=== PATIENT | female | born 1990 | race Caucasian/White ===

== ENCOUNTER 2021-06-06 14:08 | Emergency (ER) | payer OTHER ==
[2021-06-06 14:21] VITALS: BP 123/76; PULSE 105; TEMP 98.8; BMI 26.6
[2021-06-08 19:06] LABS: SARS-CoV-2 NAA Detected (Not Detected)
== END 2021-06-06 16:20 | disposition home or self-care (01) ==
LOC: JER 14:08
DX: U07.1 COVID-19 (principal); R05.1 Acute cough; R09.81 Nasal congestion
CPT/HCPCS: 99283-25; C9803; U0003; U0005

== ENCOUNTER 2021-06-14 13:00 | Emergency (ER) | payer OTHER ==
[2021-06-14 13:59] VITALS: BP 112/76; PULSE 78; TEMP 98.7; BMI 26.6
[2021-06-14] MEDS ORDERED: KETOROLAC TROMETHAMINE 60 MG/2 ML VIAL IM ONE (14:47)
[2021-06-14] MEDS ORDERED: CLINDAMYCIN HCL 150 MG CAPSULE (FP) PO ONE (14:48)
[2021-06-14] MEDS ORDERED: CLINDAMYCIN HCL 150 MG CAPSULE (FP) ONE (14:52)
[2021-06-14] MEDS ORDERED: KETOROLAC TROMETHAMINE 60 MG/2 ML VIAL ONE (14:52)
== END 2021-06-14 15:07 | disposition home or self-care (01) ==
LOC: JERFT 13:00 → JER 13:00 → JERFT 15:07
PROC: 3E0233Z Introduction of Anti-inflammatory into Muscle, Percutaneous Approach (ICD-10-PCS; principal; 2021-06-14)
DX: K08.89 Other specified disorders of teeth and supporting structures (principal)
CPT/HCPCS: 99284-25

== ENCOUNTER 2022-04-27 14:16 | Emergency (ER) | payer OTHER ==
[2022-04-27 14:48] VITALS: BP 132/80; PULSE 70; RESP 18; TEMP 98.1; BMI 29.2
== END 2022-04-27 19:00 | disposition left against medical advice (07) ==
LOC: JER 14:16
DX: M79.10 Myalgia, unspecified site (principal)
CPT/HCPCS: 93005; 93010; 99281-25

== ENCOUNTER 2022-04-28 15:09 | Emergency (ER) | payer OTHER ==
[2022-04-28 15:44] VITALS: BP 121/82; PULSE 74; RESP 20; TEMP 98.1; BMI 27.8
[2022-04-28] MEDS ORDERED: IBUPROFEN 400 MG TABLET (FP) PO ONE (16:57)
[2022-04-28] MEDS ORDERED: KETOROLAC TROMETHAMINE 30 MG/1 ML VIAL IM ONE (18:08)
[2022-04-28] MEDS ORDERED: KETOROLAC TROMETHAMINE 30 MG/1 ML VIAL ONE (18:10)
== END 2022-04-28 19:42 | disposition home or self-care (01) ==
LOC: JERFT 15:09
PROC: 3E0233Z Introduction of Anti-inflammatory into Muscle, Percutaneous Approach (ICD-10-PCS; principal; 2022-04-28)
DX: R07.89 Other chest pain (principal)
CPT/HCPCS: 71046-TC-FY; 99284-25

== ENCOUNTER 2023-09-28 04:15 | Day surgery (SDC) | payer OTHER ==
[2023-09-27 10:24] VITALS: BMI 29.9
[2023-09-28 12:51] VITALS: TEMP 98
[2023-09-28 13:15] VITALS: RESP 18
[2023-09-28 13:20] VITALS: BP 101/58; PULSE 56
== END 2023-09-28 13:20 | disposition home or self-care (01) ==
LOC: JASU-ENDO 04:15
PROVIDERS: ATTEND Internal Medicine Gastroenterology
PROC: 0DB78ZX Excision of Stomach, Pylorus, Via Natural or Artificial Opening Endoscopic, Diagnostic (ICD-10-PCS; 2023-09-28)
PROC: 0DB68ZX Excision of Stomach, Via Natural or Artificial Opening Endoscopic, Diagnostic (ICD-10-PCS; 2023-09-28)
PROC: 0DB98ZX Excision of Duodenum, Via Natural or Artificial Opening Endoscopic, Diagnostic (ICD-10-PCS; principal; 2023-09-28 11:30)
DX: K29.50 Unspecified chronic gastritis without bleeding (principal); K44.9 Diaphragmatic hernia without obstruction or gangrene
CPT/HCPCS: 81025; 88305-TC; 88342-TC

== ENCOUNTER 2023-10-26 04:39 | Day surgery (SDC) | payer OTHER ==
[2023-10-20 15:23] VITALS: BMI 31.1
[2023-10-26 12:53] VITALS: TEMP 98.8
[2023-10-26 13:31] VITALS: BP 100/58; PULSE 53; RESP 18
== END 2023-10-26 13:31 | disposition home or self-care (01) ==
LOC: JASU-ENDO 04:39
PROVIDERS: ATTEND Internal Medicine Gastroenterology
PROC: 0DBM8ZX Excision of Descending Colon, Via Natural or Artificial Opening Endoscopic, Diagnostic (ICD-10-PCS; principal; 2023-10-26 11:30)
DX: D12.4 Benign neoplasm of descending colon (principal); K64.8 Other hemorrhoids
CPT/HCPCS: 81025; 88305-TC